=== PATIENT | female | born 1990 | race Caucasian/White ===

== ENCOUNTER 2021-02-19 18:35 | Emergency (ER) | payer OTHER, SELFPAY ==
--- NOTE | ~2021-02-19 | XR_ITS ---
EXAMINATION: XR CHEST CLINICAL INFORMATION: Chest pain. Shortness of breath. COMPARISON: Chest x-ray May 07, 2018 TECHNIQUE: Frontal view of the chest was obtained. 1900 hours FINDINGS: No significant abnormality is noted involving the heart, lungs, mediastinum, bony thorax or soft tissues. XR/XR chest 1V IMPRESSION: Unremarkable examination.
--- NOTE | 2021-02-19 18:39 | ECG_ITS ---
Test Reason : CHEST PAIN Blood Pressure : / mmHG Vent. Rate : 077 BPM Atrial Rate : 077 BPM P-R Int : 140 ms QRS Dur : 096 ms QT Int : 404 ms P-R-T Axes : 035 001 034 degrees QTc Int : 457 ms Normal sinus rhythm Minimal voltage criteria for LVH, may be normal variant ( R in aVL ) Borderline ECG no previous ekg Referred By: Generic ED Physician Electronically Signed By:LOUISE PEREYRA MD
[2021-02-19 18:51] VITALS: BP 158/104; PULSE 86; RESP 18; TEMP 36.7; O2SAT 99; BMI 53.1
[2021-02-19 19:21] LABS: MANUAL DIFF FLAG NO
[2021-02-19 19:22] LABS: Basophils Percent Auto 0.3 % (0-2); Eosinophils Absolute Auto 0.1 X10*3/uL (0.0-0.4); Eosinophils Percent Auto 1.1 % (0-4); Hematocrit 42.1 % (37-47); Imm Gran Abs Auto 0.03 X10*3/uL (0.00-0.03); Imm Gran Pct Auto 0.3 % (0.0-0.4); Mean Corpuscular HGB Conc 33.3 g/dl (31.0-35.0); Mean Corpuscular Hemoglobin 28.8 pg (27.0-33.0); Mean Corpuscular Volume 86.6 fL (80-98); Mean Platelet Volume 10.1 fL (9.4-12.3); Monocytes Absolute Auto 0.5 X10*3/uL (0.1-1.2); Monocytes Percent Auto 4.8 % (2-11); Neutrophils Absolute Auto 6.7 X10*3/uL (2.0-8.3); Neutrophils Percent Auto 64.5 % (45-73); Platelet Count 238 X10*3/uL (160-400); Red Blood Count 4.86 X10*6/uL (4.20-5.50); Red Cell Distribution Width 13.3 % (11.0-16.0); White Blood Count 10.3 X10*3/uL (4.8-10.8)
[2021-02-19 19:28] VITALS: BP 158/98; PULSE 98; RESP 18; TEMP 37.2; O2SAT 98
--- NOTE | 2021-02-19 19:32 | ED.CHESTPAIN ---
HPI - Chest Pain General Chief Complaint: Chest Pain Stated Complaint: SOB AND CHEST PAIN Time Seen by Provider: 02/19/21 19:32 Source: patient Mode of arrival: ambulatory Limitations: no limitations History of Present Illness HPI narrative: Patient no history of coronary disease state of anxiety and depression was at work all day noticed lightheadedness feeling with cold sweats with dizziness sat down felt better back to normal never had similar episodes in the past. After that patient started noticing mid chest discomfort went to [facility] will EKG done with normal chest x-ray was normal COVID was negative sent here for further evaluation. Patient never had similar pain in the past at this time patient denies significant pain had mild shortness of breath none now, no family significant family history of coronary disease patient's grandfather had some cardiac problem on arrival patient vitals were blood pressure 158/104 repeat blood pressure 1589/98 saturating 99% at room air pulse 86 beats per minute Related Data Allergies Allergy/AdvReac Type Severity Reaction Status Date / Time diphenhydramine AdvReac Anxiety Verified 02/19/21 18:51 [From Benadryl] Review of Systems Review of Systems: Yes all other systems are reviewed and are negative [facility] Past Medical History Medical History (Updated 02/20/21 @ 00:03 by Lanette Willingham) Anxiety Depression Social History Social History Advance Directives: No Patient : No Physical Exam Vital Signs: Vital Signs: Last Vital Signs Temp 98.9 F 02/19/21 19:28 Pulse 98 02/19/21 19:28 Resp 18 02/19/21 19:28 BP 158/98 H 02/19/21 19:28 Pulse Ox 98 02/19/21 19:28 Body Mass Index 53.1 Appearance: Alert. Oriented X3. No acute distress. Obese Eyes: No pallor icterus ENT: Pharynx normal. Oral Mucosa moist Neck: Normal inspection. Neck supple. CVS: Normal heart rate and rhythm. Pulses normal. Respiratory: No respiratory distress. Equal air entry bilateral, no wheezing/rales/rhonchi Abdomen: Soft and nontender. Bowel sounds are present, no mass palpable, no CVA tenderness Skin: Skin warm and dry. Normal skin color. Normal skin turgor. Extremities: No lower MDM - Chest Pain MDM Narrative Medical decision making narrative: Repeat blood pressure 147/83 patient feeling much better now chest pain despite disappeared after Maalox and kj al Lab Data Attestation: I reviewed the patient's lab results. Result diagrams: 02/19/21 19:17 02/19/21 19:17 Labs: Lab Results 02/19/21 02/19/21 02/19/21 Range/Units 19:17 19:17 19:17 WBC 10.3 (4.8-10.8) X10*3/uL RBC 4.86 (4.20-5.50) X10*6/uL Hgb 14.0 (12.0-16.0) g/dl Hct 42.1 (37-47) % MCV 86.6 (80-98) fL MCH 28.8 (27.0-33.0) pg MCHC 33.3 (31.0-35.0) g/dl RDW 13.3 (11.0-16.0) % Plt Count 238 (160-400) X10*3/uL MPV 10.1 (9.4-12.3) fL Immature Gran % (Auto) 0.3 (0.0-0.4) % Neut % (Auto) 64.5 (45-73) % Lymph % (Auto) 29.0 (20-40) % Hamblen % (Auto) 4.8 (2-11) % Eos % (Auto) 1.1 (0-4) % Baso % (Auto) 0.3 (0-2) % Lymph # (Auto) 3.0 (1.2-4.9) X10*3/uL Hamb[place] # (Auto) 0.5 (0.1-1.2) X10*3/uL Eos # (Auto) 0.1 (0.0-0.4) X10*3/uL Baso # (Auto) 0.0 (0.0-0.2) X10*3/uL Abs Immat Gran (auto) 0.03 (0.00-0.03) X10*3/uL Absolute Neuts (auto) 6.7 (2.0-8.3) X10*3/uL Absolute Nucleated RBC 0.000 (0.0-0.012) X10*3/uL Nucleated RBC % (auto) 0.0 (0.0-0.2) /100WBC Sodium 139 (135-145) mmol/L Potassium 3.6 (3.3-5.1) mmol/L Chloride 106 (96-108) mmol/L Carbon Dioxide 23 (22-29) mmol/L Anion Gap 14 (12-20) BUN 9 (9-16) mg/dL Creatinine 0.71 (0.5-1.4) mg/dL Estim Creat Clear Calc 162.9 Estimated GFR > 60 Random Glucose 146 H (60-115) mg/dL Calcium 8.9 (8.4-10.2) mg/dL Troponin I High Sens < 3.5 (<3.5-17.0) ng/L ECG Data ECG #1: Attestation: I personally reviewed and interpreted this ECG as follows: Interpretation: Normal sinus rhythm 177 beats per minute LVH no acute ST T wave changes no acute ischemia Scores Heart Score History: -0- slightly suspicious ECG: -0- normal Age: -0- < or = 45 Risk factory: -0- no risk factors known Troponin: -0- < or = normal limit Score: 0 Risk: 1.7% Discharge Plan Discharge Clinical Impression: Atypical chest pain Patient Disposition: Home, Self-Care Instructions: Chest Pain (ED) Additional Instructions: The chest pain is unlikely from the heart Likely from esophageal spasm Follow-up with PCP if any concerns Interventions: ED Discharge Assessment Last Done: 02/19/21 20:27 Discharge Date/Time: 02/19/21 20:35
[2021-02-19 19:41] LABS: Anion Gap 14 (12-20); Blood Urea Nitrogen 9 mg/dL (9-16); Calcium 8.9 mg/dL (8.4-10.2); Carbon Dioxide 23 mmol/L (22-29); Chloride 106 mmol/L (96-108); Creatinine Clr Calc Pharmacy 162.9; Estimated Glomerular Filt Rate > 60; Glucose Random 146 mg/dL (60-115); Potassium 3.6 mmol/L (3.3-5.1); Sodium 139 mmol/L (135-145)
[2021-02-19 19:42] LABS: Troponin-I High Sensitivity < 3.5 ng/L (<3.5-17.0)
[2021-02-19] MEDS: Magnesium Hydrox/Alum Hydrox 30 ML ORAL.SUSP PO (20:32)
== END 2021-02-19 20:35 | disposition home or self-care (01) ==
PROVIDERS: Emergency Provider Internal Medicine
DX: R07.89 Other chest pain (principal); I25.10 Atherosclerotic heart disease of native coronary artery without angina pectoris
CPT/HCPCS: 36415; 71045; 80048; 84484; 85025; 93005; 99283; 99284

== ENCOUNTER 2021-03-16 13:05 | Emergency (ER) | payer OTHER, SELFPAY ==
[2021-03-16 13:28] VITALS: BP 107/74; PULSE 82; RESP 18; TEMP 36.3; O2SAT 97; BMI 54.2
--- NOTE | 2021-03-16 15:55 | ED_ITS ---
HPI - Back Pain/Injury General Chief Complaint: Back Pain/Injury Stated Complaint: Back Inj Time Seen by Provider: 03/16/21 15:34 Source: patient and family Mode of arrival: ambulatory Limitations: no limitations History of Present Illness HPI Narrative: 30-year-old female presenting to the ED with complaints of sudden onset of lower back pain radiating to her left lower extremity that started few hours prior to arrival while she was at home throwing up. She reports that she is feeling much better from the nausea/vomiting although from being bent over she exacerbated her back and since then has been having pain. She denies any other injuries complaints or concerns at this time. MD elicited complaint: back pain and back injury Onset (ago): hour(s) (Prior to arrival) Timing: constant Severity: moderate Quality: spasming Location: lumbar spine Radiation: left upper leg Exacerbating factors: movement and walking Relieving factors: none Context: other (While bent over throwing up this morning) Associated symptoms: denies other symptoms Work related injury: No Related Data Previous Rx's Medication Instructions Recorded diazepam 10 mg tablet (Valium) 10 mg PO TID PRN #10 tab 03/16/21 lidocaine HCl 4 % topical cream 1 appl TOPICAL BID PRN #120 g 03/16/21 (Aspercreme (lidocaine HCl)) naproxen 500 mg tablet 500 mg PO BID PRN #10 tab 03/16/21 Allergies Allergy/AdvReac Type Severity Reaction Status Date / Time diphenhydramine AdvReac Anxiety Verified 03/16/21 13:28 [From Jil] Review of Systems Review of Systems: Constitutional : No trauma, No Weight loss, No Fever, No Chills, ENT/Mouth : No Hearing loss, No Ear Pain, No Nasal Congestion, No Sinus Pain, No Hoarseness, No sore throat, No Rhinorrhea, No Swallowing Difficulty Cardiovascular : No Chest Pain, No SOB Respiratory : No Cough, No Dyspnea Gastrointestinal : No Nausea, No Vomiting, No Diarrhea, No abdominal Pain, No Hematochezia, No Melena Genitourinary : No Dysuria, No Urinary Frequency, No Hematuria, No Urinary or Bowel Incontinence/retention Musculoskeletal : + Back pain, No neck pain, No joint stiffness, No joint swelling Skin : No Skin Lesions, No rash or signs of infection Neuro : No Weakness, + radiation, No Numbness, No Paresthesias, No headache, no loss of bowel or bladder incontinence, no saddle anesthesia, Focal weakness, No radiation Denies history of IV drug usage. Yes all other systems are reviewed and are negative [facility] Past Medical History Attestation statement: The following information was validated with the patient. Medical History Anxiety Depression Social History Social History Advance Directives: No Advance Directives Information Provided: Yes Patient : No Physical Exam Vital Signs: Vital Signs: Last Vital Signs Temp 97.3 F 03/16/21 13:28 Pulse 82 03/16/21 13:28 Resp 18 03/16/21 13:28 BP 107/74 03/16/21 13:28 Pulse Ox 97 03/16/21 13:28 Body Mass Index 54.2 vital signs have been reviewed as normal and appeared to be correct. Blood pressure normal. Heart rate normal. Respiration rate normal. Temperature normal. Oxygen saturation normal. Appearance: Alert. Oriented X3. No acute distress. Head: Normal external exam. Normocephalic. Atraumatic. Eyes: PERRLA. EOMI. Conjunctiva and sclera normal. Eyelids normal. ENT: Pharynx normal. Uvula midline. Moist mucous membranes. Neck: Normal inspection. Neck supple. FROM. No adenopathy. Thyroid Normal. No meningeal signs. No neck mass noted. CVS: Normal heart rate and rhythm. Heart sound normal. No murmurs noted. Pulses normal throughout. Respiratory: No respiratory distress. Painless inspiration. Breath sounds normal. No wheezes/rales/rhonchi noted. Chest nontender. No accessory muscle usage noted or decreased air movement noted. Abdomen: Soft and nontender. Bowel sounds normal in all 4 quadrants. No distention noted. No organomegaly noted. No visible injury noted. Back: No CVA tenderness. Full range of motion noted. No obvious deformities, or edema. Mild para-spinal muscular tenderness from lumbar region to coccyx. Full ROM in back and lower extremities. 5/5 strength hip extension/flexion, abduction, adduction. Mild Lumbar pain with hip flexion against resistance. Straight leg raise test negative on right; Straight leg raise test negative on left; Reflexes normal ankle and knee bilaterally; EHL motor strength normal bilaterally. No rashes/lesion/induration/fluctuance or signs infection noted. Skin: Skin warm and dry. Normal skin color. Normal skin turgor. No rashes/lesions/lacerations noted. Extremities: Extremities exhibit normal range of motion. Extremities nontender. Neuro: Oriented X 3. No motor deficit. No sensory deficit. Reflexes normal. Patient has a normal steady gait. Course Course Course Narrative: Pt c likely muscular pain, but could be herniated disc. Neuro exam shows no deficits. Not c/w AAA/epidural abscess/dissection.No high risk Hx (Incont, fever, immunosupp, recent surgery/LP, coag, signif trauma, wt loss, puls mass, hx/o Ca, TB, or IVDU) to warrant MRI/CT today. Not c/w Pyelo/UTI/kidney stone/spinal fx. Not cauda equina syndrome. Imaging not currently indicated. DC c meds and f/u. MDM - Back Pain/Injury Medical Records Attestation: I reviewed the patient's medical records. Discharge Plan Discharge Clinical Impression: Strain of lumbar region Patient Disposition: Home, Self-Care Instructions: Low Back Strain (ED), R.I.C.E. Treatment (ED) Prescriptions: New diazepam [Valium] 10 mg tablet 10 mg PO TID PRN (Reason: muscle spasm) Qty: 10 RF: 0 lidocaine HCl [Aspercreme (lidocaine HCl)] 4 % cream 1 appl topical BID PRN (Reason: pain) Qty: 120 RF: 0 naproxen 500 mg tablet 500 mg PO BID PRN (Reason: pain) Qty: 10 RF: 0 Referrals: Sadaf Brown MD [Primary Care Provider] - 2 days Stand Alone Forms: Work/School Release Print Language: Surinamese
[2021-03-16] MEDS: Ibuprofen 800 MG TABLET PO (16:20)
[2021-03-16] MEDS: diazePAM 5 MG TABLET 10 MG PO (16:20)
[2021-03-16] MEDS: Lidocaine 4 % Patch ADH..PATCH 1 PATCH TRANSDERMA (16:21)
== END 2021-03-16 16:30 | disposition home or self-care (01) ==
PROVIDERS: Emergency Provider Emergency Medicine Emergency Medical Services; PCP Internal Medicine
DX: S39.012A Strain of muscle, fascia and tendon of lower back, initial encounter (principal); X58.XXXA Exposure to other specified factors, initial encounter; Y93.9 Activity, unspecified; Y92.9 Unspecified place or not applicable; Y99.9 Unspecified external cause status; Z79.899 Other long term (current) drug therapy
CPT/HCPCS: 99283

== ENCOUNTER 2021-03-24 11:08 | Emergency (ER) | payer OTHER, SELFPAY ==
[2021-03-24 11:39] VITALS: BP 147/97; PULSE 79; RESP 20; TEMP 36.6; O2SAT 98; BMI 54.1
--- NOTE | 2021-03-24 12:14 | ED_ITS ---
HPI - Back Pain/Injury General Chief Complaint: Back Pain/Injury Stated Complaint: back pain Time Seen by Provider: 03/24/21 12:05 Source: patient Mode of arrival: ambulatory Limitations: no limitations History of Present Illness HPI Narrative: Patient comes to the emergency room complaining of lower back pain and bilateral lumbar pain that has been present for over a month. Patient states that at work she lifts up to 50 lb multiple times per shift. Patient states that she does not recall any specific injury, but has noticed that the heavy lifting does aggravate the back discomfort. Patient states that sometimes the pain discomfort radiates down the back of her legs down to her thighs. Patient denies numbness or tingling, no urinary/fecal incontinence/retention. Patient states that stretching helps her pain. Patient has been taking almost daily for about a month 800 mg of ibuprofen daily Related Data Previous Rx's Medication Instructions Recorded diazepam 10 mg tablet (Valium) 10 mg PO TID PRN #10 tab 03/16/21 lidocaine HCl 4 % topical cream 1 appl TOPICAL BID PRN #120 g 03/16/21 (Aspercreme (lidocaine HCl)) naproxen 500 mg tablet 500 mg PO BID PRN #10 tab 03/16/21 cyclobenzaprine 5 mg tablet 5 mg PO TID PRN #10 tab 03/24/21 Allergies Allergy/AdvReac Type Severity Reaction Status Date / Time diphenhydramine AdvReac Anxiety Verified 03/24/21 11:39 [From Jil] Review of Systems Review of Systems: Constitutional : No Weight loss, No Fever, No Chills, No Night Sweats, No Fatigue, No Malaise ENT/Mouth : No Hearing loss, No Ear Pain, No Nasal Congestion, No Sinus Pain, No Hoarseness, No sore throat, No Rhinorrhea, No Swallowing Difficulty Eyes: No Eye Pain, No Swelling, No Redness, No Foreign Body, No Discharge, No Vision Changes Cardiovascular : No Chest Pain, No SOB, No Dyspnea on Exertion, No Orthopnea, No Edema, No Palpitations Respiratory : No Cough, No Sputum, No Wheezing, No Smoke Exposure, No Dyspnea Gastrointestinal : No Nausea, No Vomiting, No Diarrhea, No Constipation, No abdominal Pain, No Hematochezia, No Melena Genitourinary : no irregular bleeding, No Dysuria, No Urinary Frequency, No Hematuria, No Urinary Incontinence, No Urgency, No Flank Pain, No Urinary Flow Changes, No Hesitancy Musculoskeletal : Complaining of lumbar bilateral back pain Neuro : No Weakness, No Numbness, No Paresthesias, No Loss of Consciousness, No Dizziness, No Headache Psych : No Anxiety/Panic, No Depression, No SI/HI/AH/VH, No Social Issues, Heme/Lymph: No Bruising, No Bleeding,No Lymphadenopathy Endocrine : No Polyuria, No Polydipsia, No Temperature Intolerance PMF Past Medical History Medical History Anxiety Depression Social History Social History Advance Directives: No Patient : No Physical Exam Vital Signs: Vital Signs: Last Vital Signs Temp 97.9 F 03/24/21 11:39 Pulse 79 03/24/21 11:39 Resp 20 03/24/21 11:39 BP 147/97 H 03/24/21 11:39 Pulse Ox 98 03/24/21 11:39 Body Mass Index 54.1 Const: Other: Appearance: Alert. Oriented X3. No acute distress. Eyes: Pupils equal, round and reactive to light. ENT: Pharynx normal. Neck: Normal inspection. Neck supple. No lymph nodes noted. No crepitus CVS: Normal heart rate and rhythm. Pulses normal. Normal S1 and S2 Respiratory: No respiratory distress. Breath sounds normal. No Wheezing. No rales Abdomen: Soft and nontender. No rigidity. No distention. Back: No cervical or lumbar spine tenderness. Negative straight leg raise test bilaterally Skin: Skin warm and dry. Normal skin color. Normal skin turgor. Extremities: No lower extremity edema. No Lacerations. No Rash Neuro: Oriented X 3. No motor deficit. No sensory deficit. Moving all extermities. No slurred speech. Course Course Course Narrative: I discussed with the patient that her source of pain is likely musculoskeletal. She would likely benefit from physical therapy. Patient was given 1 dose IM 1 mg morphine and Decadron. I also discussed with the patient that ideally she should not be taking more than 600 mg of ibuprofen daily, and she should alternate between ibuprofen and Tylenol to avoid gastric ulcers/gastritis. Patient instructed not to do any lifting until she gets re- evaluated, patient states she has an appointment in 1 week from today with her PCP. Discharge Plan Discharge Clinical Impression: Lumbar radiculopathy Patient Disposition: Home, Self-Care Instructions: Acute Low Back Pain (ED), Lower Back Exercises (ED) Additional Instructions: Please follow-up with your primary care physician tomorrow. If you have any worsening or new symptoms, please return to the emergency room or call 911. Please avoid taking ibuprofen daily. Please alternate with Tylenol to preventing gastritis or stomach ulcers. You could potentially benefit from physical therapy, please discuss this with your primary care physician in your next appointment. Prescriptions: New cyclobenzaprine 5 mg tablet 5 mg PO TID PRN (Reason: muscle spasm) Qty: 10 RF: 0 No Action diazepam [Valium] 10 mg tablet 10 mg PO TID PRN (Reason: muscle spasm) Qty: 10 RF: 0 lidocaine HCl [Aspercreme (lidocaine HCl)] 4 % cream 1 appl topical BID PRN (Reason: pain) Qty: 120 RF: 0 naproxen 500 mg tablet 500 mg PO BID PRN (Reason: pain) Qty: 10 RF: 0 Stand Alone Forms: Work/School Release
[2021-03-24] MEDS: dexAMETHasone sod phosphate 4 MG/ML VIAL 6 MG IM (12:52)
[2021-03-24 12:53] VITALS: BP 140/78; PULSE 71; RESP 16; O2SAT 99
[2021-03-24] MEDS: Morphine Sulfate 2 MG/ML CARTRIDGE 1 MG IM (12:53)
== END 2021-03-24 12:59 | disposition home or self-care (01) ==
PROVIDERS: Emergency Provider Emergency Medicine; PCP Internal Medicine
DX: M54.16 Radiculopathy, lumbar region (principal); Z79.899 Other long term (current) drug therapy
CPT/HCPCS: 96372; 99284; J1100; J2270

== ENCOUNTER 2021-08-16 04:25 | Emergency (ER) | payer OTHER, SELFPAY ==
[2021-08-16 04:40] VITALS: BP 136/95; PULSE 79; RESP 18; TEMP 35.9; O2SAT 97; BMI 62.6
[2021-08-16 05:02] VITALS: BP 147/92; PULSE 65; RESP 14; TEMP 36.9; O2SAT 100
--- NOTE | 2021-08-16 05:24 | ED.NAVMDI ---
HPI - Nausea/Vomiting/Diarrhea General Chief complaint: Nausea/Vomiting/Diarrhea Stated complaint: n/v/d Time Seen by Provider: 08/16/21 05:01 Source: patient Mode of arrival: ambulatory Limitations: no limitations History of Present Illness HPI Narrative: Patient comes to the emergency room complaining of 2 days of nausea vomiting and diarrhea. Patient has mild abdominal cramping, mild dysuria. Patient denies any URI symptoms, no fever , but complaining of chills. Related Data Previous Rx's Medication Instructions Recorded diazepam 10 mg tablet (Valium) 10 mg PO TID PRN #10 tab 03/16/21 lidocaine HCl 4 % topical cream 1 appl TOPICAL BID PRN #120 g 03/16/21 (Aspercreme (lidocaine HCl)) naproxen 500 mg tablet 500 mg PO BID PRN #10 tab 03/16/21 cyclobenzaprine 5 mg tablet 5 mg PO TID PRN #10 tab 03/24/21 loperamide 2 mg capsule 2 mg PO Q6H PRN #14 cap 08/16/21 ondansetron 4 mg disintegrating 4 mg PO Q6H PRN #14 tab 08/16/21 tablet Allergies Allergy/AdvReac Type Severity Reaction Status Date / Time diphenhydramine AdvReac Anxiety Verified 08/16/21 04:51 [From Jil] Review of Systems Review of Systems: Constitutional : No Weight loss, No Fever, complaining of Chills, No Night Sweats, No Fatigue, No Malaise ENT/Mouth : No Hearing loss, No Ear Pain, No Nasal Congestion, No Sinus Pain, No Hoarseness, No sore throat, No Rhinorrhea, No Swallowing Difficulty Eyes: No Eye Pain, No Swelling, No Redness, No Foreign Body, No Discharge, No Vision Changes Cardiovascular : No Chest Pain, No SOB, No Dyspnea on Exertion, No Orthopnea, No Edema, No Palpitations Respiratory : No Cough, No Sputum, No Wheezing, No Smoke Exposure, No Dyspnea Gastrointestinal : Complaining of nausea vomiting and diarrhea. No Constipation, complaining of abdominal cramping but no significant abdominal Pain, No Hematochezia, No Melena Genitourinary : no irregular bleeding, No Dysuria, No Urinary Frequency, No Hematuria, No Urinary Incontinence, No Urgency, No Flank Pain, No Urinary Flow Changes, No Hesitancy Musculoskeletal : No joint pain, No Myalgias, No Joint Swelling Skin : No Skin Lesions, No rash Neuro : No Weakness, No Numbness, No Paresthesias, No Loss of Consciousness, No Dizziness, No Headache Psych : No Anxiety/Panic, No Depression, No SI/HI/AH/VH, No Social Issues, Heme/Lymph: No Bruising, No Bleeding,No Lymphadenopathy Endocrine : No Polyuria, No Polydipsia, No Temperature Intolerance FORMERLY [facility], [facility] Past Medical History Medical History Anxiety Depression Social History Social History Advance Directives: No Advance Directives Information Provided: Yes Patient : No Physical Exam Vital Signs: Vital Signs: Last Vital Signs Temp 98.5 F 08/16/21 05:02 Pulse 61 08/16/21 06:18 Resp 14 08/16/21 06:18 BP 146/88 H 08/16/21 06:18 Pulse Ox 99 08/16/21 06:18 BMI result Body Mass Index 62.6 Const: Other: Appearance: Alert. Oriented X3. No acute distress. Well-appearing Eyes: Pupils equal, round and reactive to light. bilaterl myadriasis ENT: Pharynx normal. Neck: Normal inspection. Neck supple. No lymph nodes noted. No crepitus CVS: Normal heart rate and rhythm. Pulses normal. Normal S1 and S2 Respiratory: No respiratory distress. Breath sounds normal. No Wheezing. No rales Abdomen: Soft and nontender. No rigidity. No distention. Skin: Skin warm and dry. Normal skin color. Normal skin turgor. Extremities: No lower extremity edema. No Lacerations. No Rash Neuro: Oriented X 3. No motor deficit. No sensory deficit. Moving all extremities. No slurred speech. CN 2 through 12 grossly intact Psych: calm, cooperative, normal affect Course Course Course Narrative: Patient's labs are pending. Patient receiving IV fluids, Zofran and loperamide. Patient tested negative for COVID influenza. Urinalysis pending. Sign out given to Dr. Carlos UNDERWOOD - Nausea/Vomiting/Diarrhea Lab Data Result diagrams: 08/16/21 05:28 08/16/21 05:28 Labs: Lab Results 04/08/16/21 08/16/21 Range/Units 05:28 05:28 05:28 WBC 7.9 (4.8-10.8) X10*3/uL RBC 4.97 (4.20-5.50) X10*6/uL Hgb 13.7 (12.0-16.0) g/dl Hct 42.8 (37.0-47.0) % MCV 86.1 (80.0-98.0) fL MCH 27.6 (27.0-33.0) pg MCHC 32.0 (31.0-35.0) g/dl RDW 13.2 (11.0-16.0) % Plt Count 226 (160-400) X10*3/uL MPV 9.9 (9.4-12.3) fL Immature Gran % (Auto) 0.5 H (0.0-0.4) % Neut % (Auto) 72.2 (45-73) % Lymph % (Auto) 21.1 (20-40) % [place] % (Auto) 4.6 (2-11) % Eos % (Auto) 1.5 (0-4) % Baso % (Auto) 0.1 (0-2) % Lymph # (Auto) 1.7 (1.2-4.9) X10*3/uL [place] # (Auto) 0.4 (0.1-1.2) X10*3/uL Eos # (Auto) 0.1 (0.0-0.4) X10*3/uL Baso # (Auto) 0.0 (0.0-0.2) X10*3/uL Abs Immat Gran (auto) 0.04 H (0.00-0.03) X10*3/uL Absolute Neuts (auto) 5.7 (2.0-8.3) x10*3/uL Absolute Nucleated RBC 0.000 (0.0-0.012) X10*3/uL Nucleated RBC % (auto) 0.0 (0.0-0.2) /100WBC Sodium 139 (135-145) mmol/L Potassium 4.0 (3.3-5.1) mmol/L Chloride 105 (96-108) mmol/L Carbon Dioxide 27 (22-29) mmol/L Anion Gap 11 L (12-20) BUN 11 (9-16) mg/dL Creatinine 0.67 (0.5-1.4) mg/dL Estim Creat Clear Calc 190.3 Estimated GFR > 60 Random Glucose 125 H (60-115) mg/dL Calcium 9.6 D (8.4-10.2) mg/dL Total Bilirubin 0.7 (0.0-1.0) mg/dL Direct Bilirubin 0.2 (0.0-0.5) mg/dL AST 14 (5-31) U/L ALT 15 (0-31) U/L Alkaline Phosphatase 80 (39-117) U/L Total Protein 7.1 (6.5-8.0) g/dL Albumin 4.5 (3.5-5.0) g/dL Lipase 12 (8-78) U/L COVID-19 (RUY) (Negative) COVID-19 Clin Com Influenza Type A (DEVONTE) Negative (Negative) Influenza Type B (DEVONTE) Negative (Negative) Influenza A & B Note See Note 08/16/21 Range/Units 05:28 WBC (4.8-10.8) X10*3/uL RBC (4.20-5.50) X10*6/uL Hgb (12.0-16.0) g/dl Hct (37.0-47.0) % MCV (80.0-98.0) fL MCH (27.0-33.0) pg MCHC (31.0-35.0) g/dl RDW (11.0-16.0) % Plt Count (160-400) X10*3/uL MPV (9.4-12.3) fL Immature Gran % (Auto) (0.0-0.4) % Neut % (Auto) (45-73) % Lymph % (Auto) (20-40) % [place] % (Auto) (2-11) % Eos % (Auto) (0-4) % Baso % (Auto) (0-2) % Lymph # (Auto) (1.2-4.9) X10*3/uL [place] # (Auto) (0.1-1.2) X10*3/uL Eos # (Auto) (0.0-0.4) X10*3/uL Baso # (Auto) (0.0-0.2) X10*3/uL Abs Immat Gran (auto) (0.00-0.03) X10*3/uL Absolute Neuts (auto) (2.0-8.3) x10*3/uL Absolute Nucleated RBC (0.0-0.012) X10*3/uL Nucleated RBC % (auto) (0.0-0.2) /100WBC Sodium (135-145) mmol/L Potassium (3.3-5.1) mmol/L Chloride (96-108) mmol/L Carbon Dioxide (22-29) mmol/L Anion Gap (12-20) BUN (9-16) mg/dL Creatinine (0.5-1.4) mg/dL Estim Creat Clear Calc Estimated GFR Random Glucose (60-115) mg/dL Calcium (8.4-10.2) mg/dL Total Bilirubin (0.0-1.0) mg/dL Direct Bilirubin (0.0-0.5) mg/dL AST (5-31) U/L ALT (0-31) U/L Alkaline Phosphatase (39-117) U/L Total Protein (6.5-8.0) g/dL Albumin (3.5-5.0) g/dL Lipase (8-78) U/L COVID-19 (RUY) Negative (Negative) COVID-19 Clin Com See Note Influenza Type A (DEVONTE) (Negative) Influenza Type B (DEVONTE) (Negative) Influenza A & B Note Discharge Plan Discharge Clinical Impression: Nausea vomiting and diarrhea Patient Disposition: Home, Self-Care Instructions: Acute Nausea and Vomiting (ED) Additional Instructions: Please follow-up with your primary care physician tomorrow. If you have any worsening or new symptoms, please return to the emergency room or call 911 Prescriptions: New ondansetron 4 mg tablet,disintegrating 4 mg PO Q6H PRN (Reason: nausea and vomiting) Qty: 14 0RF loperamide 2 mg capsule 2 mg PO Q6H PRN (Reason: loose stool) Qty: 14 0RF No Action cyclobenzaprine 5 mg tablet 5 mg PO TID PRN (Reason: muscle spasm) Qty: 10 0RF diazepam [Valium] 10 mg tablet 10 mg PO TID PRN (Reason: muscle spasm) Qty: 10 0RF lidocaine HCl [Aspercreme (lidocaine HCl)] 4 % cream 1 appl topical BID PRN (Reason: pain) Qty: 120 0RF naproxen 500 mg tablet 500 mg PO BID PRN (Reason: pain) Qty: 10 0RF
[2021-08-16 05:37] LABS: Basophils Percent Auto 0.1 % (0-2); Eosinophils Absolute Auto 0.1 X10*3/uL (0.0-0.4); Eosinophils Percent Auto 1.5 % (0-4); Hematocrit 42.8 % (37.0-47.0); Hemoglobin 13.7 g/dl (12.0-16.0); Imm Gran Abs Auto 0.04 X10*3/uL (0.00-0.03); Imm Gran Pct Auto 0.5 % (0.0-0.4); Lymphocytes Absolute Auto 1.7 X10*3/uL (1.2-4.9); Lymphocytes Percent Auto 21.1 % (20-40); MANUAL DIFF FLAG NO; Mean Corpuscular Hemoglobin 27.6 pg (27.0-33.0); Mean Corpuscular Volume 86.1 fL (80.0-98.0); Mean Platelet Volume 9.9 fL (9.4-12.3); Monocytes Absolute Auto 0.4 X10*3/uL (0.1-1.2); Monocytes Percent Auto 4.6 % (2-11); Neutrophils Absolute Auto 5.7 x10*3/uL (2.0-8.3); Neutrophils Percent Auto 72.2 % (45-73); Platelet Count 226 X10*3/uL (160-400); Red Blood Count 4.97 X10*6/uL (4.20-5.50); Red Cell Distribution Width 13.2 % (11.0-16.0); White Blood Count 7.9 X10*3/uL (4.8-10.8)
[2021-08-16] MEDS: 0.9 % Sodium Chloride 1,000 ML 999 ML IVCONT (05:40)
[2021-08-16] MEDS: Loperamide HCl 2 MG CAPSULE 4 MG PO (05:40)
[2021-08-16] MEDS: ondansetron HCL 4 MG/2 ML VIAL IVPUSH (05:41)
[2021-08-16 05:53] LABS: Alanine Aminotransferase 15 U/L (0-31); Albumin Level 4.5 g/dL (3.5-5.0); Alkaline Phosphatase 80 U/L (39-117); Anion Gap 11 (12-20); Aspartate Amino Transferase 14 U/L (5-31); Bilirubin Direct 0.2 mg/dL (0.0-0.5); Bilirubin Total 0.7 mg/dL (0.0-1.0); Blood Urea Nitrogen 11 mg/dL (9-16); Calcium 9.6 mg/dL (8.4-10.2); Carbon Dioxide 27 mmol/L (22-29); Chloride 105 mmol/L (96-108); Creatinine Clr Calc Pharmacy 190.3; Estimated Glomerular Filt Rate > 60; Glucose Random 125 mg/dL (60-115); Lipase 12 U/L (8-78); Sodium 139 mmol/L (135-145); Total Protein 7.1 g/dL (6.5-8.0)
[2021-08-16 05:54] LABS: COVID-19 Test Negative (Negative); IDNOW Serial# 55D5AD1C; Influenza A Negative (Negative); Influenza B2 Negative (Negative)
[2021-08-16 06:18] VITALS: BP 146/88; PULSE 61; RESP 14; O2SAT 99
[2021-08-16 07:28] LABS: Appearance Urine CLEAR; Color Urine YELLOW; Glucose Urine UA NEG (NEG); Leukocyte Esterase Urine NEG (NEG); Nitrite Urine NEG (NEG); Specific Gravity - Urine 1.025 (1.005-1.025); Urine Blood NEG (NEG); Urine Ketones NEG (NEG); Urine Protein NEG (NEG-TRACE)
[2021-08-16 07:30] LABS: UPreg QC Valid YES; Urine Pregnancy NEGATIVE (NEGATIVE)
== END 2021-08-16 08:11 | disposition home or self-care (01) ==
PROVIDERS: Emergency Provider Emergency Medicine
DX: R11.2 Nausea with vomiting, unspecified (principal); R30.0 Dysuria; Z20.822 Contact with and (suspected) exposure to COVID-19; Z79.899 Other long term (current) drug therapy
CPT/HCPCS: 36415; 80048; 80076; 81003; 81025; 83690; 85025; 87502; 87635; 96361; 96374; 99284; J2405

== ENCOUNTER 2021-11-30 22:02 | Emergency (ER) | payer OTHER, SELFPAY ==
[2021-11-30 22:41] VITALS: BP 141/76; PULSE 71; RESP 18; TEMP 36.6; O2SAT 97; BMI 55.7
== END 2021-12-01 05:58 | disposition left against medical advice (07) ==
LOC: HO.ED 12-01 05:57
PROVIDERS: Emergency Provider Emergency Medicine; PCP Internal Medicine
DX: S39.92XA Unspecified injury of lower back, initial encounter (principal); W10.8XXA Fall (on) (from) other stairs and steps, initial encounter; Y93.9 Activity, unspecified; Y92.9 Unspecified place or not applicable; Y99.9 Unspecified external cause status
CPT/HCPCS: 99281

== ENCOUNTER 2022-07-30 14:12 | Emergency (ER) | payer OTHER, SELFPAY ==
--- NOTE | ~2022-07-30 | XR_ITS ---
EXAMINATION: XR CHEST CLINICAL INFORMATION: SOB COMPARISON: None available. TECHNIQUE: 2 views of the chest were obtained. FINDINGS: No significant abnormality is noted involving the heart, lungs, mediastinum, bony thorax or soft tissues. XR/XR chest 2V IMPRESSION: Unremarkable chest examination.
--- NOTE | 2022-07-30 14:33 | ECG_ITS ---
Test Reason : sob Blood Pressure : / mmHG Vent. Rate : 070 BPM Atrial Rate : 070 BPM P-R Int : 156 ms QRS Dur : 084 ms QT Int : 402 ms P-R-T Axes : 034 002 025 degrees QTc Int : 434 ms Normal sinus rhythm with sinus arrhythmia Normal ECG When compared with ECG of 19-FEB-2021 18:47, No significant change was found Referred By: Patience Cannon Electronically Signed By:Andrez Bejarano
[2022-07-30 16:02] VITALS: BP 175/77; PULSE 75; RESP 20; TEMP 36.7; O2SAT 98; BMI 54.1
--- NOTE | 2022-07-30 16:02 | ED_ITS ---
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 She does vape and has an IUD as well as family history in her mother of DVT. She otherwise denies any fever, chills, new cough, GI or symptoms. <Lizz Aguayo MD - Last Filed: 07/30/22 20:23> Related Data Home Medications: Previous Rx's Medication Instructions Recorded diazepam 10 mg tablet (Valium) 10 mg PO TID PRN muscle spasm #10 03/16/21 tabs lidocaine HCl 4 % topical cream 1 appl topical BID PRN pain #120 03/16/21 (Aspercreme (lidocaine HCl)) grams naproxen 500 mg tablet 500 mg PO BID PRN pain #10 tabs 03/16/21 cyclobenzaprine 5 mg tablet 5 mg PO TID PRN muscle spasm #10 03/24/21 tabs loperamide 2 mg capsule 2 mg PO Q6H PRN loose stool #14 08/16/21 caps ondansetron 4 mg disintegrating 4 mg PO Q6H PRN nausea and 08/16/21 tablet vomiting #14 tabs <GABBY Man - Last Filed: 07/30/22 16:07> Allergies/Adverse Reactions: Allergies Allergy/AdvReac Type Severity Reaction Status Date / Time diphenhydramine AdvReac Anxiety Verified 08/16/21 04:51 [From Benadryl] <GABBY Man - Last Filed: 07/30/22 16:07> Review of Systems Review of Systems: Pertinent positives and negatives as stated in HPI <Lizz Aguayo MD - Last Filed: 07/30/22 20:23> PMFSH Past Medical History Source: nursing notes reviewed <Lizz Aguayo MD - Last Filed: 07/30/22 20:23> Medical History: Medical History Anxiety Depression <GABBY Man - Last Filed: 07/30/22 16:07> Social History Social History: Social History Advance Directives: No Advance Directives Information Provided: Yes <GABBY Man - Last Filed: 07/30/22 16:07> Physical Exam Vital Signs: Vital Signs: Last Vital Signs Temp 98.2 F 07/30/22 20:00 Pulse 67 07/30/22 20:00 Resp 28 H 07/30/22 20:00 BP 135/78 07/30/22 20:00 Pulse Ox 97 07/30/22 20:00 O2 Del Method Room Air 07/30/22 20:00 BMI result Body Mass Index 54.1 <GABBY Man - Last Filed: 07/30/22 16:07> Vital Signs: Last Vital Signs Temp 98.2 F 07/30/22 20:00 Pulse 67 07/30/22 20:00 Resp 28 H 07/30/22 20:00 BP 135/78 07/30/22 20:00 Pulse Ox 97 07/30/22 20:00 O2 Del Method Room Air 07/30/22 20:00 BMI result Body Mass Index 54.1 VITAL SIGNS: Reviewed. GENERAL: Well developed, well nourished, in no acute distress. HEAD: Normocephalic/atraumatic EYES: PERRLA, EOMI EARS: Ext canals without abnormality NOSE: Nares patent bilateral OROPHARYNX: no oral lesions noted, posterior pharynx clear NECK: Supple, no adenopathy LUNGS: Normal breath sounds. No adventitious sounds or accessory muscle use. SpO2<98> CARDIOVASCULAR: Regular rate and rhythm without noted murmurs, no JVD or lower extremity edema. ABDOMEN: Soft, non-tender, non-distended with bowel sounds. MUSCULOSKELETAL: No tenderness, deformities, or effusions noted on gross inspection. EXTREMITIES: No cyanosis, clubbing or edema. SKIN: Inspection of the skin reveals no rashes NEUROLOGIC: Alert and oriented x 4. Strength and sensation to light touch were grossly intact x 4. <Lizz Aguayo MD - Last Filed: 07/30/22 20:23> Course Course Course Narrative: RME - 32 yo female with history of morbid obesity, XAVIER on CPAP who presents to the ER for evaluation of shortness of breath, difficulty breathing, lethargy, and DINH for the last 1-2 weeks. Got lightheaded at work today. No chest pain. No leg swelling. PERC negative. Plan: EKG, CXR, lab workup <GABBY Man - Last Filed: 07/30/22 16:07> Medical Decision Making Medical Decision Making MDM Narrative: 32-year-old female with history and clinical presentation for which we will rule out infection, anemia, electrolyte abnormalities. Review of all investigations in my interpretation is that this is dyspnea on exertion potentially secondary to vaping as there is no evidence to suggest infection, anemia, electrolyte abnormalities or PE. All results discussed with patient at bedside. She is otherwise discharged home in stable condition. <Lizz Aguayo MD - Last Filed: 07/30/22 20:23> Differential Diagnosis Please see the discussion above <Lizz Aguayo MD - Last Filed: 07/30/22 20:23> Lab Data Please see the discussion above <Lizz Aguayo MD - Last Filed: 07/30/22 20:23> Result Diagrams: 07/30/22 15:55 07/30/22 15:55 <GABBY Man - Last Filed: 07/30/22 16:07> Labs: Lab Results 07/30/22 07/30/22 07/30/22 Range/Units 15:55 15:55 15:55 WBC 9.4 (4.8-10.8) X10*3/uL RBC 4.52 (4.20-5.50) X10*6/uL Hgb 12.9 (12.0-16.0) g/dl Hct 40.5 (37.0-47.0) % MCV 89.6 (80.0-98.0) fL MCH 28.5 (27.0-33.0) pg MCHC 31.9 (31.0-35.0) g/dl RDW 13.4 (11.0-16.0) % Plt Count 230 (160-400) X10*3/uL MPV 10.3 (9.4-12.3) fL Immature Gran % (Auto) 0.4 (0.0-0.4) % Neut % (Auto) 69.4 (45-73) % Lymph % (Auto) 24.4 (20-40) % [place] % (Auto) 4.7 (2-11) % Eos % (Auto) 0.9 (0-4) % Baso % (Auto) 0.2 (0-2) % Lymph # (Auto) 2.3 (1.2-4.9) X10*3/uL [place] # (Auto) 0.4 (0.1-1.2) X10*3/uL Eos # (Auto) 0.1 (0.0-0.4) X10*3/uL Baso # (Auto) 0.0 (0.0-0.2) X10*3/uL Abs Immat Gran (auto) 0.04 H (0.00-0.03) X10*3/uL Absolute Neuts (auto) 6.5 (2.0-8.3) x10*3/uL Absolute Nucleated RBC 0.000 (0.0-0.012) X10*3/uL Nucleated RBC % (auto) 0.0 (0.0-0.2) /100WBC D-Dimer High Sensitivty NG/ML Sodium 143 (135-145) mmol/L Potassium 4.2 (3.3-5.1) mmol/L Chloride 107 (96-108) mmol/L Carbon Dioxide 25 (22-29) mmol/L Anion Gap 15 (12-20) BUN 12 (9-16) mg/dL Creatinine 0.65 (0.5-1.4) mg/dL Estim Creat Clear Calc 176.5 Estimated GFR > 60 Random Glucose 88 (60-115) mg/dL Calcium 9.0 D (8.4-10.2) mg/dL Magnesium 2.0 (1.6-2.6) mg/dL Total Bilirubin 0.6 (0.0-1.0) mg/dL Direct Bilirubin 0.2 (0.0-0.5) mg/dL AST 11 (5-31) U/L ALT 18 (0-31) U/L Alkaline Phosphatase 94 (39-117) U/L B-Natriuretic Peptide (<100) pg/mL Total Protein 6.4 L (6.5-8.0) g/dL Albumin 4.1 (3.5-5.0) g/dL COVID-19 (RUY) (Negative) COVID-19 Clin Com Influenza Type A (DEVONTE) Negative (Negative) Influenza Type B (DEVONTE) Negative (Negative) Influenza A & B Note See Note 07/30/22 07/30/22 07/30/22 Range/Units 15:55 15:55 19:30 WBC (4.8-10.8) X10*3/uL RBC (4.20-5.50) X10*6/uL Hgb (12.0-16.0) g/dl Hct (37.0-47.0) % MCV (80.0-98.0) fL MCH (27.0-33.0) pg MCHC (31.0-35.0) g/dl RDW (11.0-16.0) % Plt Count (160-400) X10*3/uL MPV (9.4-12.3) fL Immature Gran % (Auto) (0.0-0.4) % Neut % (Auto) (45-73) % Lymph % (Auto) (20-40) % [place] % (Auto) (2-11) % Eos % (Auto) (0-4) % Baso % (Auto) (0-2) % Lymph # (Auto) (1.2-4.9) X10*3/uL [place] # (Auto) (0.1-1.2) X10*3/uL Eos # (Auto) (0.0-0.4) X10*3/uL Baso # (Auto) (0.0-0.2) X10*3/uL Abs Immat Gran (auto) (0.00-0.03) X10*3/uL Absolute Neuts (auto) (2.0-8.3) x10*3/uL Absolute Nucleated RBC (0.0-0.012) X10*3/uL Nucleated RBC % (auto) (0.0-0.2) /100WBC D-Dimer High Sensitivty < 150 NG/ML Sodium (135-145) mmol/L Potassium (3.3-5.1) mmol/L Chloride (96-108) mmol/L Carbon Dioxide (22-29) mmol/L Anion Gap (12-20) BUN (9-16) mg/dL Creatinine (0.5-1.4) mg/dL Estim Creat Clear Calc Estimated GFR Random Glucose (60-115) mg/dL Calcium (8.4-10.2) mg/dL Magnesium (1.6-2.6) mg/dL Total Bilirubin (0.0-1.0) mg/dL Direct Bilirubin (0.0-0.5) mg/dL AST (5-31) U/L ALT (0-31) U/L Alkaline Phosphatase (39-117) U/L B-Natriuretic Peptide 12 (<100) pg/mL Total Protein (6.5-8.0) g/dL Albumin (3.5-5.0) g/dL COVID-19 (RUY) Negative (Negative) COVID-19 Clin Com See Note Influenza Type A (DEVONTE) (Negative) Influenza Type B (DEVONTE) (Negative) Influenza A & B Note <GABBY Man - Last Filed: 07/30/22 16:07> Lab Results 07/30/22 07/30/22 07/30/22 Range/Units 15:55 15:55 15:55 WBC 9.4 (4.8-10.8) X10*3/uL RBC 4.52 (4.20-5.50) X10*6/uL Hgb 12.9 (12.0-16.0) g/dl Hct 40.5 (37.0-47.0) % MCV 89.6 (80.0-98.0) fL MCH 28.5 (27.0-33.0) pg MCHC 31.9 (31.0-35.0) g/dl RDW 13.4 (11.0-16.0) % Plt Count 230 (160-400) X10*3/uL MPV 10.3 (9.4-12.3) fL Immature Gran % (Auto) 0.4 (0.0-0.4) % Neut % (Auto) 69.4 (45-73) % Lymph % (Auto) 24.4 (20-40) % [place] % (Auto) 4.7 (2-11) % Eos % (Auto) 0.9 (0-4) % Baso % (Auto) 0.2 (0-2) % Lymph # (Auto) 2.3 (1.2-4.9) X10*3/uL [place] # (Auto) 0.4 (0.1-1.2) X10*3/uL Eos # (Auto) 0.1 (0.0-0.4) X10*3/uL Baso # (Auto) 0.0 (0.0-0.2) X10*3/uL Abs Immat Gran (auto) 0.04 H (0.00-0.03) X10*3/uL Absolute Neuts (auto) 6.5 (2.0-8.3) x10*3/uL Absolute Nucleated RBC 0.000 (0.0-0.012) X10*3/uL Nucleated RBC % (auto) 0.0 (0.0-0.2) /100WBC D-Dimer High Sensitivty NG/ML Sodium 143 (135-145) mmol/L Potassium 4.2 (3.3-5.1) mmol/L Chloride 107 (96-108) mmol/L Carbon Dioxide 25 (22-29) mmol/L Anion Gap 15 (12-20) BUN 12 (9-16) mg/dL Creatinine 0.65 (0.5-1.4) mg/dL Estim Creat Clear Calc 176.5 Estimated GFR > 60 Random Glucose 88 (60-115) mg/dL Calcium 9.0 D (8.4-10.2) mg/dL Magnesium 2.0 (1.6-2.6) mg/dL Total Bilirubin 0.6 (0.0-1.0) mg/dL Direct Bilirubin 0.2 (0.0-0.5) mg/dL AST 11 (5-31) U/L ALT 18 (0-31) U/L Alkaline Phosphatase 94 (39-117) U/L B-Natriuretic Peptide (<100) pg/mL Total Protein 6.4 L (6.5-8.0) g/dL Albumin 4.1 (3.5-5.0) g/dL COVID-19 (RUY) (Negative) COVID-19 Clin Com Influenza Type A (DEVONTE) Negative (Negative) Influenza Type B (DEVONTE) Negative (Negative) Influenza A & B Note See Note 07/30/22 07/30/22 07/30/22 Range/Units 15:55 15:55 19:30 WBC (4.8-10.8) X10*3/uL RBC (4.20-5.50) X10*6/uL Hgb (12.0-16.0) g/dl Hct (37.0-47.0) % MCV (80.0-98.0) fL MCH (27.0-33.0) pg MCHC (31.0-35.0) g/dl RDW (11.0-16.0) % Plt Count (160-400) X10*3/uL MPV (9.4-12.3) fL Immature Gran % (Auto) (0.0-0.4) % Neut % (Auto) (45-73) % Lymph % (Auto) (20-40) % [place] % (Auto) (2-11) % Eos % (Auto) (0-4) % Baso % (Auto) (0-2) % Lymph # (Auto) (1.2-4.9) X10*3/uL [place] # (Auto) (0.1-1.2) X10*3/uL Eos # (Auto) (0.0-0.4) X10*3/uL Baso # (Auto) (0.0-0.2) X10*3/uL Abs Immat Gran (auto) (0.00-0.03) X10*3/uL Absolute Neuts (auto) (2.0-8.3) x10*3/uL Absolute Nucleated RBC (0.0-0.012) X10*3/uL Nucleated RBC % (auto) (0.0-0.2) /100WBC D-Dimer High Sensitivty < 150 NG/ML Sodium (135-145) mmol/L Potassium (3.3-5.1) mmol/L Chloride (96-108) mmol/L Carbon Dioxide (22-29) mmol/L Anion Gap (12-20) BUN (9-16) mg/dL Creatinine (0.5-1.4) mg/dL Estim Creat Clear Calc Estimated GFR Random Glucose (60-115) mg/dL Calcium (8.4-10.2) mg/dL Magnesium (1.6-2.6) mg/dL Total Bilirubin (0.0-1.0) mg/dL Direct Bilirubin (0.0-0.5) mg/dL AST (5-31) U/L ALT (0-31) U/L Alkaline Phosphatase (39-117) U/L B-Natriuretic Peptide 12 (<100) pg/mL Total Protein (6.5-8.0) g/dL Albumin (3.5-5.0) g/dL COVID-19 (RUY) Negative (Negative) COVID-19 Clin Com See Note Influenza Type A (DEVONTE) (Negative) Influenza Type B (DEVONTE) (Negative) Influenza A & B Note <Lizz Aguayo MD - Last Filed: 07/30/22 20:23> Independent Interpretation I performed an independent interpretation of an: EKG <Lizz Aguayo MD - Last Filed: 07/30/22 20:23> Interpretation: Normal sinus rhythm, HR-70, no STEMI, [place]/QRS/QTC is within normal limits <Lizz Aguayo MD - Last Filed: 07/30/22 20:23> Radiology Impression Radiologist Impression: My interpretation is in agreement with radiology's impression of the imaging studies. <Lizz Aguayo MD - Last Filed: 07/30/22 20:23> Discharge Plan Discharge Clinical Impression: Dyspnea on exertion, Morbid obesity, Anxiety <GABBY Man - Last Filed: 07/30/22 16:07> Patient Disposition: Home, Self-Care <GABBY Man - Last Filed: 07/30/22 16:07> Instructions: Anxiety (ED), Dyspnea (ED) <GABBY Man - Last Filed: 07/30/22 16:07> Additional Instructions: 1. Resume all home medications as prescribed. 2. Recommend follow-up with your primary care provider in the next 1-2 days for re-evaluation. Return to the ER for any worsening symptoms. <GABBY Man - Last Filed: 07/30/22 16:07> Prescriptions: No Action cyclobenzaprine 5 mg tablet 5 mg PO TID PRN (Reason: muscle spasm) Qty: 10 0RF diazepam [Valium] 10 mg tablet 10 mg PO TID PRN (Reason: muscle spasm) Qty: 10 0RF lidocaine HCl [Aspercreme (lidocaine HCl)] 4 % cream 1 appl topical BID PRN (Reason: pain) Qty: 120 0RF naproxen 500 mg tablet 500 mg PO BID PRN (Reason: pain) Qty: 10 0RF ondansetron 4 mg tablet,disintegrating 4 mg PO Q6H PRN (Reason: nausea and vomiting) Qty: 14 0RF loperamide 2 mg capsule 2 mg PO Q6H PRN (Reason: loose stool) Qty: 14 0RF <GABBY Man - Last Filed: 07/30/22 16:07>
[2022-07-30 16:05] LABS: MANUAL DIFF FLAG NO
[2022-07-30 16:06] LABS: Basophils Percent Auto 0.2 % (0-2); Eosinophils Absolute Auto 0.1 X10*3/uL (0.0-0.4); Eosinophils Percent Auto 0.9 % (0-4); Hematocrit 40.5 % (37.0-47.0); Hemoglobin 12.9 g/dl (12.0-16.0); Imm Gran Abs Auto 0.04 X10*3/uL (0.00-0.03); Imm Gran Pct Auto 0.4 % (0.0-0.4); Lymphocytes Absolute Auto 2.3 X10*3/uL (1.2-4.9); Lymphocytes Percent Auto 24.4 % (20-40); Mean Corpuscular HGB Conc 31.9 g/dl (31.0-35.0); Mean Corpuscular Hemoglobin 28.5 pg (27.0-33.0); Mean Corpuscular Volume 89.6 fL (80.0-98.0); Mean Platelet Volume 10.3 fL (9.4-12.3); Monocytes Absolute Auto 0.4 X10*3/uL (0.1-1.2); Monocytes Percent Auto 4.7 % (2-11); Neutrophils Absolute Auto 6.5 x10*3/uL (2.0-8.3); Neutrophils Percent Auto 69.4 % (45-73); Platelet Count 230 X10*3/uL (160-400); Red Blood Count 4.52 X10*6/uL (4.20-5.50); Red Cell Distribution Width 13.4 % (11.0-16.0); White Blood Count 9.4 X10*3/uL (4.8-10.8)
[2022-07-30 16:23] LABS: Alanine Aminotransferase 18 U/L (0-31); Albumin Level 4.1 g/dL (3.5-5.0); Alkaline Phosphatase 94 U/L (39-117); Anion Gap 15 (12-20); Aspartate Amino Transferase 11 U/L (5-31); Bilirubin Direct 0.2 mg/dL (0.0-0.5); Bilirubin Total 0.6 mg/dL (0.0-1.0); Blood Urea Nitrogen 12 mg/dL (9-16); Carbon Dioxide 25 mmol/L (22-29); Chloride 107 mmol/L (96-108); Creatinine Clr Calc Pharmacy 176.5; Estimated Glomerular Filt Rate > 60; Glucose Random 88 mg/dL (60-115); Potassium 4.2 mmol/L (3.3-5.1); Sodium 143 mmol/L (135-145); Total Protein 6.4 g/dL (6.5-8.0)
[2022-07-30 16:36] LABS: COVID-19 Test Negative (Negative); IDNOW Serial# 9DB6401D; IDNOW Serial# BCCEAD1C; Influenza A Negative (Negative); Influenza B2 Negative (Negative)
[2022-07-30 16:44] LABS: B Type Natriuretic Peptide 12 pg/mL (<100)
[2022-07-30 18:58] VITALS: BP 138/76; PULSE 72; RESP 18; TEMP 36.7; O2SAT 98
[2022-07-30 20:00] VITALS: BP 135/78; PULSE 67; RESP 28; TEMP 36.8; O2SAT 97
[2022-07-30 20:08] LABS: D Dimer High Sensitivity < 150 NG/ML
== END 2022-07-30 20:32 | disposition home or self-care (01) ==
PROVIDERS: Physician Assistant; Emergency Provider Student in an Organized Health Care Education/Training Program
DX: R06.02 Shortness of breath (principal); F41.1 Generalized anxiety disorder; F43.0 Acute stress reaction; I49.8 Other specified cardiac arrhythmias; Z20.828 Contact with and (suspected) exposure to other viral communicable diseases; Z20.822 Contact with and (suspected) exposure to COVID-19; Z79.899 Other long term (current) drug therapy
CPT/HCPCS: 36415; 71046; 80048; 80076; 83735; 83880; 85025; 85379; 87502; 87635; 93005; 99283; 99285

== ENCOUNTER 2022-11-06 13:42 | Outpatient (REF) | payer OTHER, SELFPAY ==
[2022-11-06 15:42] LABS: Amphetamine Screen Urine Not Detected (Not Detect); Barbiturates, Urine Not Detected (Not Detect); Benzodiazepines Screen Urine Not Detected (Not Detect); Cannabinoid Screen Urine POSITIVE (Not Detect); Cocaine Screen Urine Not Detected (Not Detect); Fentanyl, urine Not Detected (Not Detect); Opiate Screen Urine Not Detected (Not Detect); Phencyclidine Screen Urine Not Detected (Not Detect)
== END 2022-11-06 13:43 | disposition home or self-care (01) ==
LOC: HO.LNP 13:42
PROVIDERS: Visit Provider Clinical Nurse Specialist Psychiatric/Mental Health
DX: F12.20 Cannabis dependence, uncomplicated (principal)
CPT/HCPCS: 80307

== ENCOUNTER 2022-11-11 14:10 | Outpatient (REF) | payer OTHER, SELFPAY ==
[2022-11-11 16:42] LABS: Iron 57 mcg/dL (30-160); Magnesium 1.8 mg/dL (1.6-2.6); Percent Iron Saturation 20 % (15-50); Total Iron Binding Capacity 292 mcg/dL (228-428); Unsaturated Iron Binding 235 ug/dL
[2022-11-11 16:58] LABS: Free T4 (Free Thyroxine) 0.96 ng/dL (0.71-1.85); Thyroid Stimulating Hormone 1.63 uIU/mL (0.32-4.0); Vitamin D 25-OH Total 17.7 ng/mL (>30)
[2022-11-11 17:09] LABS: Folate 11.2 ng/mL (> or = 4.0); Vitamin B12 436 pg/mL (200-900)
== END 2022-11-11 14:11 | disposition home or self-care (01) ==
LOC: HO.LAB 14:10
PROVIDERS: Visit Provider Clinical Nurse Specialist Psychiatric/Mental Health
DX: F33.9 Major depressive disorder, recurrent, unspecified (principal)
CPT/HCPCS: 36415; 82306; 82607; 82746; 83540; 83735; 84439; 84443

== ENCOUNTER → 2022-11-12 09:15 | Outpatient (BNV) | payer OTHER, SELFPAY | PROVIDERS: Visit Provider Clinical Nurse Specialist Psychiatric/Mental Health | DX: F33.2 Major depressive disorder, recurrent severe without psychotic features (principal); F41.1 Generalized anxiety disorder; F41.0 Panic disorder [episodic paroxysmal anxiety] | CPT/HCPCS: 99212; 99214 ==

== ENCOUNTER 2022-11-20 11:15 | Outpatient (RCR) | payer OTHER, SELFPAY ==
[2022-11-04 13:11] VITALS: BP 152/100; PULSE 79; TEMP 37.3
[2022-11-04 13:16] VITALS: BMI 66.6
--- NOTE | 2022-11-04 14:36 | PC.ADMIT ---
Patient is a 32 year old female who was referred to [facility] [place] by [facility] crisis after her therapist suggested she get an evaluation d/t increased depression and anxiety sxs. Report experiencing nausea, vomiting, and diarrhea. Reports symptoms have lessened and diarrhea has resolved. Patient has taken a leave of absence from work d/t her symptoms. She reports increasing work stresses. She reports passive SI, denied plan or intent to kill herself. She reports a history of self harm by cutting herself however has not done this in three years. She is reporting d/t increasing stress and self loathing she has been hitting herself with her hands. Patient reports hx of heavy marijuana use and has stopped using a month ago. Patience was given education on Cannabis induced hyperemesis syndrome. Patient also reports hx of heavy ETOH use which has been an issue for years. Currently has cut down her use for the past year drinking one glass of wine every two weeks. Denied any current withdrawal sxs. Patient is alert and oriented x4. Calm and cooperative. Presented with depressed mood and affect. I gave her a copy of her safety plan if needed and I reviewed this with her. I reconciled medications with Patience and her pharmacy. She reports taking medications as prescribed.
[2022-11-05 10:44] VITALS: BP 147/75; PULSE 75
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
--- NOTE | 2022-11-06 08:47 | HO.PHP ---
The clients case was reviewed and opened in treatment team
--- NOTE | 2022-11-09 11:58 | PC.NURSE ---
Patient stated she left a message with [facility] a few days ago to obtain a new PCP and has not heard back yet. She placed a second call in my office to [facility] in my office and was directed to the new patient line who stated they would call her back regarding a new PCP appointment.
--- NOTE | 2022-11-11 14:33 | PC.NURSE ---
Patience reports [facility] called her back regarding a new PCP appointment and she was informed she needed to call her insurance [employer] and let them know she wants a new patient appointment at [facility] before she is able to make an appointment. Patience came to my office and we called the main scheduling office at [facility] and confirmed that Patience needs to call [employer] and notify them before she can schedule an appointment. She was told to use PCP Anjum Altamirano. Once she does this she is to call the practice and make an appointment. They also advised her to call on Wednesday or Wednesday morning as more appointments are available at that time. Patience has her [employer] insurance card and is planning on calling her insurance to f/u.
--- NOTE | 2022-11-24 07:25 | HO.PHP ---
I called and left a message with Lacey Elizondo [facility] re clients discharge from the program.
== END 2022-11-23 23:59 | disposition home or self-care (01) ==
LOC: HO.PHPA 11:15
PROVIDERS: Visit Provider Psychiatry & Neurology Psychiatry
DX: F33.9 Major depressive disorder, recurrent, unspecified (principal); F41.1 Generalized anxiety disorder; F41.0 Panic disorder [episodic paroxysmal anxiety]
CPT/HCPCS: 90791; 90853